=== PATIENT | male | born 1985 ===

== ENCOUNTER 2021-07-02 03:50 | Emergency (ER) | payer SELFPAY ==
[2021-07-02 04:05] VITALS: BP 130/87; PULSE 68; RESP 17; TEMP 98.4
--- NOTE | 2021-07-02 05:04 | ED ---
General Adult HPI - General Chief complaint: Recheck/Abnormal Lab/Rx Stated complaint: covid swab Time Seen by Provider: 07/02/21 03:59 Source: patient Mode of arrival: ambulatory - History of Present Illness Initial comments: Patient is a 35-year-old man presenting to have COVID-19 testing for [place]. Denies any medical complaints and declines medical screening exam - Related Data Allergies Allergy/AdvReac Type Severity Reaction Status Date / Time No Known Allergies Allergy Verified 07/02/21 04:05 Review of Systems ROS Statement: Those systems with pertinent positive or pertinent negative responses have been documented in the HPI. ROS Other: All systems not noted in ROS Statement are negative. Past Medical History Past Medical History: No Reported History History of Any Multi-Drug Resistant Organisms: None Reported Past Surgical History: No Surgical Hx Reported Past Psychological History: No Psychological Hx Reported Smoking Status: Never smoker Past Alcohol Use History: Occasional Past Drug Use History: None Reported Course Vital Signs 07/02/21 04:03 Temperature 98.4 F Pulse Rate 68 Respiratory 17 Rate Blood Pressure 130/87 O2 Sat by Pulse 97 Oximetry Medical Decision Making - Lab Data Lab Results 07/02/21 Range/Units 04:11 Coronavirus (PCR) Not Detected (Not Detectd) Disposition Clinical Impression: Encounter for immunological test Disposition: HOME SELF-CARE Condition: Good Is patient prescribed a controlled substance at d/c from ED?: No Referrals: None,Stated [Primary Care Provider] - 1-2 days
== END 2021-07-02 05:25 | disposition home or self-care (01) ==
LOC: EC 03:50
DX: Z01.84 Encounter for antibody response examination (principal); Z20.822 Contact with and (suspected) exposure to COVID-19
CPT/HCPCS: 87635; 99282